=== PATIENT | female | born 1965 | race Caucasian/White ===

== ENCOUNTER 2023-08-26 10:25 | Outpatient (CLI) | payer OTHER, SELFPAY ==
[2023-08-26 10:39] LABS: Basophils # 0.1 K/mm3 (0-0.2); Basophils % 0.6 % (0.1-2.0); Eosinophils # 0.5 K/mm3 (0.0-0.4); Hematocrit 43.2 % (37.0-47.0); Hemoglobin 14.9 g/dL (12.2-16.2); Lymphocytes # 2.5 K/mm3 (0.7-4.5); Lymphocytes % 33.5 % (10-50); Mean Corpuscular HGB Conc 34.6 g/dL (31.8-35.4); Mean Corpuscular Hemoglobin 34.3 pg (27.0-31.2); Mean Corpuscular Volume 99.1 fl (81-99); Mean Platelet Volume 7.7 fl (7.4-10.4); Monocytes # 0.4 K/mm3 (0.1-1.0); Neutrophils # 4.2 K/mm3 (1.8-7.8); Neutrophils % 54.9 % (37.0-80.0); Platelet Count 214 K/mm3 (142-424); Red Blood Count 4.36 M/mm3 (4.20-5.40); Red Cell Distribution Width 13.7 % (11.5-17.5); White Blood Count 7.6 K/mm3 (4.8-10.8)
[2023-08-26 10:50] LABS: Hemoglobin A1C 8.2 % (4.0-6.0)
[2023-08-26 12:55] LABS: Alanine Aminotransferase 25 U/L (12-78); Albumin Level 4.3 g/dl (3.5-5.0); Albumin/Globulin Ratio 1.7 (1.1-1.8); Alkaline Phosphatase 94 U/L (38-126); Anion Gap 14.6 mEq/L (5-15); Aspartate Amino Transferase 23 U/L (14-36); Bilirubin,Total 0.3 mg/dl (0.2-1.3); Blood Urea Nitrogen 18 mg/dl (7-17); Calcium 10.1 mg/dl (8.4-10.2); Carbon Dioxide 26 mmol/L (22.0-30.0); Chloride 105 mmol/L (98-107); Chol/HDL Ratio 4.3 (1-3.5); Cholesterol 179 mg/dl (140-200); Estimated Glomerular Filt Rate 73 ml/min (>60); GFR (African American) 89 ML/MIN (>60); Globulin 2.6 g/dL (1.3-3.2); Glucose 197 mg/dl (74-100); HDL Cholesterol 42 mg/dl (40-60); Potassium 5.6 mmoL/L (3.5-5.1); Sodium 140 mmol/L (136-145); Total Protein,Serum 6.9 g/dl (6.3-8.2); Triglycerides 291 mg/dl (30-150); VLDL Cholesterol 58 mg/dL (0-40)
[2023-08-26 13:07] LABS: Direct LDL Cholesterol 93.48 mg/dL (100-129)
[2023-09-03 21:09] LABS: 1,25 Dihydroxy Vitamin D 27 pg/mL (.); 1,25-Dihydroxy, Vitamin D-2 <10 pg/mL (.); 1,25-Dihydroxy, Vitamin D-3 27 pg/mL (.)
== END 2023-08-26 23:59 ==
PROVIDERS: PCP Family Medicine; Visit Provider Family Medicine
DX: M54.31 Sciatica, right side (principal); E11.9 Type 2 diabetes mellitus without complications; E66.9 Obesity, unspecified; Z68.33 Body mass index [BMI] 33.0-33.9, adult; Z79.84 Long term (current) use of oral hypoglycemic drugs; Z79.899 Other long term (current) drug therapy
CPT/HCPCS: 36415; 80053; 80061; 82652; 83036; 84443; 85025

== ENCOUNTER 2023-09-21 18:50 | Outpatient (CLI) | payer OTHER, SELFPAY ==
[2023-09-21 17:52] LABS: Coronavirus 19, PCR Not Detected (NotDetected); Influenza A, PCR Not Detected (NotDetected); Influenza B, PCR Not Detected (NotDetected)
== END 2023-09-21 23:59 ==
LOC: LAB.DROPOF 18:50
PROVIDERS: PCP Nurse Practitioner; Visit Provider Nurse Practitioner
DX: J06.9 Acute upper respiratory infection, unspecified (principal); R11.2 Nausea with vomiting, unspecified; R19.7 Diarrhea, unspecified; R51.9 Headache, unspecified; R50.9 Fever, unspecified
CPT/HCPCS: 87636

== ENCOUNTER 2024-07-12 18:32 | Outpatient (CLI) | payer OTHER, SELFPAY | END 2024-07-12 23:59 | disposition home or self-care (01) | LOC: LAB 18:33 | PROVIDERS: PCP Nurse Practitioner Family; Visit Provider Nurse Practitioner Family | DX: M54.9 Dorsalgia, unspecified (principal); G89.29 Other chronic pain | CPT/HCPCS: 87086 ==

== ENCOUNTER 2024-10-21 13:32 | Outpatient (CLI) | payer OTHER, SELFPAY | END 2024-10-21 23:59 | disposition home or self-care (01) | LOC: LAB.DROPOF 10-22 12:52 | PROVIDERS: PCP Nurse Practitioner; Visit Provider Nurse Practitioner | DX: N30.01 Acute cystitis with hematuria (principal) | CPT/HCPCS: 87086; 87088; 87186 ==

== ENCOUNTER 2025-06-16 09:30 | Outpatient (CLI) | payer OTHER, SELFPAY ==
[2025-06-16 09:56] LABS: Hematocrit 44.5 % (37.0-47.0); Hemoglobin 14.5 g/dL (12.2-16.2); Immature Granulocytes % 0.7 %; Mean Corpuscular HGB Conc 32.6 g/dL (31.8-35.4); Mean Corpuscular Hemoglobin 31.8 pg (27.0-31.2); Mean Corpuscular Volume 97.6 fl (81-99); Nucleated Red Blood Cells % 0 %; Platelet Count 213 K/mm3 (142-424); Red Blood Count 4.56 M/mm3 (4.20-5.40); Red Cell Distribution Width-SD 47.6 fL; White Blood Count 6.9 K/mm3 (4.8-10.8)
--- NOTE | 2025-06-16 11:00 | CA_ITS ---
APPROVED REPORT EXAM: Comprehensive 2D, Doppler, and color-flow Echocardiogram Form Coverer: Shanti Daniel RDCS Ht: 5 ft 6 in Wt: 198lbs BSA: 1.99 BP: 150/90 mmHg Indications: CP CHF M-Mode Dimensions RVDd 1.64 cm (0.9-2.6) LA Diam 3.40 cm (1.9-4.0) LVDd 3.60 cm (3.5-5.7) LVDs 2.20 cm (3.5-5.7) IVSd 1.13 cm (0.6-1.1) PWd 0.93 cm (0.6-1.1) EF (Teich) 70.20% FS 38.90% EDV (Teich) 54.40 mL TAPSE 1.68 (<1.7) ESV (Teich) 16.20 mL LV Diastology E Decel Time 147 (160-240 msec) E/A Ratio 0.8 Mitral Valve MV E Max Yoel. 73.0 (40-130 cm/s) MV A Velocity 89.0 (40-130 cm/s) E/A Ratio 0.83 MV PHT 43.0 ms Left Ventricle The left ventricle is normal size. Left ventricular systolic function is normal. The left ventricular ejection fraction is within the normal range. There is increased left ventricular wall thickness. There is normal LV segmental wall motion. Transmitral Doppler flow pattern suggests impaired LV relaxation. LVEF is 55% Right Ventricle The right ventricle is normal size. The right ventricular systolic function is normal. Atria The left atrium size is normal. The right atrium size is normal. There is no color Doppler evidence of interatrial shunt. Aortic Valve The aortic valve opens well. There is no hemodynamically significant aortic valvular stenosis. No aortic regurgitation is present. Mitral Valve The mitral valve is normal in structure. No evidence of mitral valve stenosis. Trace mitral regurgitation is present. Tricuspid Valve The tricuspid valve leaflets are thin and pliable. Trace tricuspid regurgitation. There is insufficient TR jet to estimate RVSP. Pulmonic Valve The pulmonary valve is grossly normal in structure. Trace pulmonic valve regurgitation is present. Great Vessels The aortic root is normal in size. IVC is normal in size and collapses >50% with inspiration. Pericardium There is no pericardial effusion. Other Information Study Quality: Technically Difficult Conclusion Normal biventricular systolic function. No significant valvular stenosis or regurgitation. Electronically signed by : Clotilde Purcell MD 06/19/2025 13:13:25
[2025-06-16 11:03] LABS: Alanine Aminotransferase 27 U/L (12-78); Albumin Level 4.5 g/dl (3.5-5.0); Albumin/Globulin Ratio 1.6 (1.1-1.8); Alkaline Phosphatase 99 U/L (38-126); Anion Gap 12.8 mEq/L (5-15); Aspartate Amino Transferase 23 U/L (14-36); Bilirubin,Total 0.5 mg/dl (0.2-1.3); Blood Urea Nitrogen 17 mg/dl (7-17); Calcium 10.0 mg/dl (8.4-10.2); Carbon Dioxide 23 mmol/L (22.0-30.0); Chloride 106 mmol/L (98-107); Cholesterol 187 mg/dl (140-200); Creatinine,Serum 0.70 mg/dl (0.52-1.04); Estimated Glomerular Filt Rate 85 ml/min (>60); GFR (African American) 103 ML/MIN (>60); Globulin 2.8 g/dL (1.3-3.2); Glucose 159 mg/dl (74-100); HDL Cholesterol 60 mg/dl (40-60); Potassium 4.8 mmoL/L (3.5-5.1); Sodium 137 mmol/L (136-145); Total Protein,Serum 7.3 g/dl (6.3-8.2); Triglycerides 248 mg/dl (30-150)
[2025-06-16 11:34] LABS: Thyroid Stimulating Hormone 2.46 uIU/mL (0.465-4.68)
[2025-06-16 11:43] VITALS: BP 125/77; PULSE 94; RESP 18; TEMP 36.2; O2SAT 95; BMI 31.4
[2025-06-16 11:51] LABS: Hepatitis C Ab Qual. W/ RFX NEGATIVE (Negative)
[2025-06-16] MEDS: METOPROLOL TARTRATE 50MG TABLET PO (11:52)
[2025-06-16] MEDS: IVABRADINE HCL 7.5MG TABLET PO (11:52)
--- NOTE | 2025-06-16 13:00 | CT_ITS ---
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 A noncontrast coronary calcium scan was performed. A CT attenuation threshold of 130 Hounsfield units (HU) was used for the detection of calcium in contiguous voxels of 1 sq mm in area to be counted as individual lesions. Bolus tracking in the ascending aorta with a threshold of 180 HU was performed. Immediately afterwards, ECG synchronized cardiac CT was then performed from the cardiac base to apex using retrospective gating with ECG tube current modulation. A total of 85 mL of Isovue 370 mg/mL contrast medium was administered at 5 mL/sec followed by a saline flush using a biphasic injection protocol. A tube voltage of 120 KVp was used. The patient received the following medications prior to the cardiac CT. 125 mg of oral metoprolol 15 mg of oral ivabradine 0.8 mg of sublingual nitroglycerin The average heart rate at the time of acquisition was 90 bpm and regular. Image Reconstruction Transaxial images were reconstructed at 0.67 mm slide thickness. Data was reviewed interactively on an advanced workstation capable of 2 and 3-dimensional displays in all conventional reconstruction formats, including multiplanar reformations, maximum intensity projections, curved multiplanar reformations, and volume rendered reconstructions. When applicable, selected routine images describing the relevant coronary anatomy and pathology were saved and sent to PACS. Complications None Technical Quality Overall image quality was suboptimal due to significant blurring and motion artifact. Coronary artery opacification was suboptimal. Total DLP (Dose-Length Product) is 2343.7 mGy-cm. The reported value represents the total of one or more individual components during the CT acquisition of this date and at this time, and as such, the same value may appear in more than one CT report depending on the interpreting/reporting physicians. COMPARISON None FINDINGS CT Coronary Calcium Scoring LMA (Left Main Artery) = 0 LAD (Left Anterior Descending) = 81 LCX (Left Coronary Circumflex) = 0 RCA (Right Coronary Artery) = 89 Total Calcium Score = 170 using the AJ-130 method. The observed calcium score of 170 is at 92nd percentile for subjects of the same age, sex, and race/ethnicity. The interpretation of the calcium heart score is based on the following continuum*: 0 = no calcified plaque detected (risk of coronary artery disease is very low ??? less than 5%) 1-10 = calcium detected in extremely minimal levels (risk of coronary diseases is still low ??? less than 10%) 11-100 = mild levels of plaque detected with certainty (mild or minimal narrowing of heart arteries is likely) 101-400 = definite,at least moderate levels of plaque detected (relatively high risk of a heart attack within 3-5 years) >401-999 = extensive levels of plaque detected (high risk of heart attack, high levels of vascular disease are present, high likelihood of at least one significant coronary narrowing) *The calcium heart score quantifies the burden of coronary calcification/plaque in the coronary arteries. The calcium heart score is not able to evaluate the presence or burden of non-calcified (i.e. soft) plaque. There is also calcification in the aortic valve and the mitral annulus. Coronary CT Angiography The coronary arterial system is right dominant. Quantitative Stenosis Grading: Left Main (LM): The left main originates normally from the left sinus of Valsalva. The LM bifurcates into the left anterior descending artery and left circumflex artery. The LM is patent with no evidence of atherosclerosis. Left Anterior Descending (LAD) and Diagonal Branches: The LAD gives off 3 diagonal branch(es). There is mixed calcified/noncalcified plaque in the proximal and mid LAD segments, with indeterminate, but likely high, degree of luminal stenosis (possibly up to 70-90% luminal stenosis). There is no evidence of LAD-myocardial bridge. Left Circumflex (LCX) and Obtuse Marginals (OM): The LCX gives off 1 Obtuse Marginal (OM) branch(es). The proximal and mid LCx segments are difficult to visualize due to significant motion. The LCX and its branches are patent with no evidence of atherosclerosis. Right Coronary Artery (RCA): The RCA originates normally from the right sinus of Valsalva. The RCA gives off a posterior descending artery (PDA) and posterolateral (PL) branches. The proximal and mid RCA segments are difficult to visualize due to significant motion. There is mixed calcified/noncalcified plaque in the proximal RCA segment with possibly up to 25-49% luminal stenosis. Non-Coronary Cardiac Findings: Analysis of the left ventricular (LV) structure and function was performed after 3-D reconstruction of the LV from axial images, with user-corrected automatic contouring for assessment of LV volumes and user-defined reconstruction from oblique planes for measurement of 3-D cardiac structure and function. -The left ventricle systolic function is normal. -There is no left atrial appendage filling defect. Two right pulmonary veins and two left pulmonary veins drain normally into the left atrium. -No pericardial thickening or calcification. -Central and branch pulmonary arteries in the [id number] are unremarkable. -Thoracic aorta within the visualized thoracic aortic-branches in the [id number] is unremarkable. Extracardiac Structures No significant extra-cardiac findings. Note, however, that this study is focused on the cardiac findings. IMPRESSION -Technically difficult study due to significant motion and abnormal artifact (elevated HR at the time of image acquisition despite HR controlling medications). Evaluation with alternative modalities is suggested. -Presence of coronary calcification with an Agatston score = 170 using the AJ-130 method. -The observed calcium score of 170 is at 92nd percentile for subjects of the same age, sex, and race/ethnicity. -Calcified/noncalcified plaque in the proximal LAD and RCA segments, with indeterminate, but possibly high, likelihood of significant flow-limiting atherosclerosis of the coronary arteries. -CAD-RADS 4A. Management recommendations per ACC/AHA guidelines*, as clinically appropriate. *Recommendations: CAD RADS 0: Reassurance. Consider non-atherosclerotic causes of chest pain. CAD RADS 1: Consider non-atherosclerotic causes of chest pain. Consider preventive therapy and risk factor modification. CAD RADS 2: Consider non-atherosclerotic causes of chest pain. Consider preventive therapy and risk factor modification, particularly for patients with nonobstructive plaque in multiple segments. CAD RADS 3: Consider further functional testing. Consider symptom-guided anti-ischemic and preventive pharmacotherapy as well as risk factor modification per published guideline statements. CAD RADS 4A: Consider further functional testing or invasive coronary angiography with revascularization per published guideline statements. Consider symptom-guided anti-ischemic and preventive pharmacotherapy as well as risk factor modification per published guideline statements. CAD RADS 4B: Invasive coronary angiography recommended with revascularization per published guideline statements. Consider symptom-guided anti-ischemic and preventive pharmacotherapy as well as risk factor modification per published guideline statements. CAD RADS 5: Consider invasive angiography and/or viability assessment with revascularization per published guideline statements. Consider symptom-guided anti-ischemic and preventive pharmacotherapy as well as risk factor modification per published guideline statements. CRITICAL RESULT None COMMUNICATION Per this written report The coronary and cardiac findings of this CCTA were reviewed, reported, and signed by Abilio Purcell MD (Home Improvement Installer) Conclusion Electronically signed by : Clotilde Purcell MD 06/19/2025 12:59:22
[2025-06-16 13:10] VITALS: BP 152/89; PULSE 93; RESP 18; TEMP 36.2; O2SAT 94
[2025-06-16 13:20] VITALS: BP 136/82; PULSE 93; RESP 18; TEMP 36.2; O2SAT 96
[2025-06-17 04:09] LABS: Hepatitis B Surface Antigen Negative (Negative)
== END 2025-06-16 13:27 | disposition home or self-care (01) ==
PROVIDERS: PCP Family Medicine; Visit Provider Family Medicine
DX: I25.10 Atherosclerotic heart disease of native coronary artery without angina pectoris (principal); I50.9 Heart failure, unspecified; Z11.59 Encounter for screening for other viral diseases; E11.9 Type 2 diabetes mellitus without complications; I42.9 Cardiomyopathy, unspecified; R00.0 Tachycardia, unspecified
CPT/HCPCS: 36415; 75574; 80053; 80061; 84443; 85025; 86803; 87340; 87389; 93306

== ENCOUNTER 2025-07-16 06:39 | Day surgery (SDC) | payer OTHER, SELFPAY ==
[2025-07-16] VITALS (11 sets, daily range): BP systolic 109–179; BP diastolic 59–83; PULSE 70–85; RESP 16–19; TEMP 36.7; O2SAT 91–95; BMI 32.4
--- NOTE | 2025-07-16 07:13 | IR_ITS ---
APPROVED REPORT Patient Location: Outpatient PROCEDURES Left heart catheterization Left ventriculogram Selective coronary angiogram INDICATION Abnormal CCTA, Angina pectoris Informed consent was obtained prior to the procedure. COMPLICATIONS NONE Estimated Blood Loss: LESS THAN 10 ML TECHNIQUE One percent lidocaine used to anesthetize the right anterior aspect of the wrist. The right radial artery was accessed via the Seldinger technique. A 6 [place] sheath was placed in the right radial artery. 2.5 mg of Verapamil, 800 mcg of nitroglycerin, 1mg Lidocaine and 5000 U Heparin were given through the arterial sheath. The JL3 catheter was also used to perform left heart catheterization, left ventriculogram and selective coronary angiogram. At the end of the procedure the sheath was removed good hemostasis was achieved using Traclet band, patient was transferred to the postop holding area in stable condition. ANGIOGRAPHIC RESULTS The left main artery Normal The left anterior descending artery Is approximately normal followed by mid vessel 10% luminal regularities. The LAD tapers in the mid to distal segment and slowly becomes atretic never reaching the apex. The diagonal arteries are patent The circumflex artery Nondominant and has a proximal concentric 50% stenosis. Small to medium sized first obtuse marginal artery has an ostial 60% stenosis. A larger second obtuse marginal artery has a proximal 40 to 50% concentric stenosis The right coronary artery Large and dominant has proximal eccentric 20% stenosis with additional 30% concentric stenoses. The HEWITT ventriculogram reveals Preserved at 60% The left ventricular end-diastolic pressure Elevated at 25 mmHg IMPRESSION Unusual mid to distal LAD which slowly tapers prior to approaching the apex and then becomes atretic with no focal stenosis identified Moderate circumflex disease as described above Mild to moderate right coronary disease Preserved ejection fraction with moderately elevated LVEDP PLAN 1. Medical management for coronary artery disease 2. Treatment of HFpEF 3. Aggressive risk factor modification Electronically signed by : Jackson Burnett MD 07/16/2025 10:20:24
--- NOTE | 2025-07-16 08:06 | SUR.PREOP ---
Pt refusing for groins to be prepped and stated if we could not use her wrist then she does not want the procedure
[2025-07-16 08:25] LABS: Hematocrit 47.1 % (37.0-47.0); Hemoglobin 15.9 g/dL (12.2-16.2); Immature Granulocytes % 0.3 %; Mean Corpuscular HGB Conc 33.8 g/dL (31.8-35.4); Mean Corpuscular Hemoglobin 32.2 pg (27.0-31.2); Mean Corpuscular Volume 95.3 fl (81-99); Nucleated Red Blood Cells % 0 %; Platelet Count 216 K/mm3 (142-424); Red Blood Count 4.94 M/mm3 (4.20-5.40); Red Cell Distribution Width-SD 46.9 fL; White Blood Count 6.1 K/mm3 (4.8-10.8)
[2025-07-16 09:13] LABS: Anion Gap 12.5 mEq/L (5-15); Blood Urea Nitrogen 20 mg/dl (7-17); Calcium 9.2 mg/dl (8.4-10.2); Carbon Dioxide 23 mmol/L (22.0-30.0); Chloride 109 mmol/L (98-107); Creatinine Clearance Estimated 85 mL/min (50-200); Creatinine,Serum 0.80 mg/dl (0.52-1.04); Estimated Glomerular Filt Rate 73 ml/min (>60); GFR (African American) 88 ML/MIN (>60); Glucose 193 mg/dl (74-100); Potassium 4.5 mmoL/L (3.5-5.1); Sodium 140 mmol/L (136-145)
[2025-07-16] MEDS: NITROGLYCERIN 800MCG/8ML SYR (CATH LAB) 800 MCG IA (09:56)
[2025-07-16] MEDS: HEPARIN 1,000 UNITS/ML 10ML VIAL (CATH LAB) 5000 UNIT IV (09:56)
[2025-07-16] MEDS: HEPARIN 1,000 UNITS/500ML NS (CATH LAB) 3000 UNIT IV (09:56)
[2025-07-16] MEDS: 0.9 % SODIUM CHLORIDE 500 ML 25 ML IV (09:56)
[2025-07-16] MEDS: LIDOCAINE 1% 10ML MDV 10 ML IJ (09:56)
[2025-07-16] MEDS: VERAPAMIL 2.5MG/ML 2ML VIAL 2.5 MG IV (09:57)
[2025-07-16] MEDS: MIDAZOLAM HCL 1MG/ML 5ML VIAL 1 MG IV (10:13)
[2025-07-16] MEDS: FENTANYL 100MCG/2ML VIAL 25 MCG IV (10:13)
== END 2025-07-16 13:30 | disposition home or self-care (01) ==
PROVIDERS: PCP Family Medicine; Visit Provider Internal Medicine
PROC: 4A023N7 Measurement of Cardiac Sampling and Pressure, Left Heart, Percutaneous Approach (ICD-10-PCS; CPT 93452; principal; 2025-07-16 07:30)
DX: I25.119 Atherosclerotic heart disease of native coronary artery with unspecified angina pectoris (principal); R93.1 Abnormal findings on diagnostic imaging of heart and coronary circulation; R94.31 Abnormal electrocardiogram [ECG] [EKG]; I50.9 Heart failure, unspecified; I42.9 Cardiomyopathy, unspecified; E11.9 Type 2 diabetes mellitus without complications; R53.83 Other fatigue; J44.9 Chronic obstructive pulmonary disease, unspecified; F17.210 Nicotine dependence, cigarettes, uncomplicated; Z79.84 Long term (current) use of oral hypoglycemic drugs; Z79.1 Long term (current) use of non-steroidal anti-inflammatories (NSAID); Z79.52 Long term (current) use of systemic steroids; Z79.899 Other long term (current) drug therapy; Z88.0 Allergy status to penicillin; Z88.8 Allergy status to other drugs, medicaments and biological substances
CPT/HCPCS: 80048; 85025; 93458; 99152; C1769; C1887; J1200; J1644; J2003; J3010; J7040; Q9967